=== PATIENT | female | born 1965 ===

== ENCOUNTER 2019-04-02 10:05 | Emergency (ER) | payer OTHER ==
[~2019-04-02] VITALS: Ht 154.9 cm; Wt 48.2 kg
[2019-04-02 10:24] VITALS: BP 147/88
== END 2019-04-02 12:06 | disposition home or self-care (01) ==
LOC: ED 11:50
DX: J06.9 Acute upper respiratory infection, unspecified (principal)
CPT/HCPCS: 71046; 99283